=== PATIENT | female | born 1980 | race Caucasian/White ===

== ENCOUNTER 2017-09-18 23:50 | Emergency (ER) | payer OTHER ==
[2017-09-19] MEDS ORDERED: ATIVAN IV ONE (00:57)
[2017-09-19] MEDS ORDERED: ATIVAN IM ONE (01:01)
--- NOTE | 2017-09-19 01:01 | Emergency Department Report ---
ED General Adult HPI - General Chief complaint: High BP Stated complaint: HIGH BLOOD PRESSURE Time Seen by Provider: 09/19/17 00:47 Source: patient, family Mode of arrival: Ambulatory Limitations: Language Barrier - History of Present Illness Initial comments: Patient is 37 years old female with history of hypertension presented to the ER with high blood pressure and an anxiety attack. Patient daughter stated that they had a big family dispute this evening. Patient denied any headache shortness of breath, chest pain, weakness numbness or tingling sensation. No bowel or bladder incontinence. Patient stated that she is depressed but she denied any suicidal or homicidal ideation. She stated that she is following with her primary doctor for depression. - Related Data Previous Rx's Medication Instructions Recorded Last Taken Type LORazepam [Ativan] 1 mg PO QHS #7 tab 09/19/17 Unknown Rx Allergies Allergy/AdvReac Type Severity Reaction Status Date / Time omeprazole AdvReac Unknown Verified 09/19/17 00:23 ED Review of Systems ROS: Stated complaint: HIGH BLOOD PRESSURE Other details as noted in HPI Comment: All other systems reviewed and negative Constitutional: denies: chills, fever Respiratory: denies: cough, shortness of breath Cardiovascular: denies: chest pain, palpitations, dyspnea on exertion Gastrointestinal: denies: abdominal pain, nausea, vomiting, diarrhea, constipation, hematemesis Genitourinary: denies: urgency Musculoskeletal: denies: back pain Neurological: denies: headache, weakness, numbness, paresthesias, confusion, abnormal gait, vertigo ED Past Medical Hx - Past Medical History Previous Medical History?: Yes Hx Hypertension: Yes Hx Diabetes: No (with only) Hx GERD: Yes Hx Liver Disease: Yes (Hep B) Hx Psychiatric Treatment: Yes (depression, anxiety) - Surgical History Past Surgical History?: Yes Additional Surgical History: Breast augmentation, Tubal ligation - Social History Smoking Status: Never Smoker Substance Use Type: None - Medications Home Medications: Home Medications Medication Instructions Recorded Confirmed Last Taken Type LORazepam [Ativan] 1 mg PO QHS #7 tab 09/19/17 Unknown Rx ED Physical Exam - General Limitations: Language Barrier General appearance: alert, in no apparent distress, anxious - Head Head exam: Present: atraumatic, normocephalic, normal inspection - Eye Eye exam: Present: normal appearance, PERRL - ENT ENT exam: Present: normal exam, normal orophraynx, mucous membranes moist - Neck Neck exam: Present: normal inspection, full ROM. Absent: tenderness, meningismus - Respiratory Respiratory exam: Present: normal lung sounds bilaterally. Absent: respiratory distress, wheezes, rales, rhonchi, stridor, chest wall tenderness, accessory muscle use, decreased breath sounds, prolonged expiratory - Cardiovascular Cardiovascular Exam: Present: regular rate, normal rhythm, normal heart sounds - GI/Abdominal GI/Abdominal exam: Present: soft, normal bowel sounds. Absent: distended, tenderness, guarding, rebound, rigid, hyperactive bowel sounds, hypoactive bowel sounds, organomegaly, mass, bruit, pulsatile mass, hernia - Extremities Exam Extremities exam: Present: normal inspection, full ROM, normal capillary refill - Back Exam Back exam: Present: normal inspection, full ROM. Absent: tenderness, CVA tenderness (R), CVA tenderness (L) - Neurological Exam Neurological exam: Present: alert, oriented X3, CN II-XII intact, normal gait, reflexes normal. Absent: abnormal gait, motor sensory deficit - Psychiatric Psychiatric exam: Present: depressed, anxious. Absent: agitated, flat affect, manic, homicidal ideation, suicidal ideation - Skin Skin exam: Present: warm, intact, normal color ED Course Vital Signs 09/19/17 09/19/17 09/19/17 00:24 00:40 01:00 Temperature 99.5 F Pulse Rate 89 Respiratory 18 Rate Blood Pressure 180/103 161/99 178/104 Blood Pressure [Left] O2 Sat by Pulse 100 Oximetry 09/19/17 09/19/17 09/19/17 01:39 02:00 02:01 Temperature Pulse Rate 74 Respiratory 18 Rate Blood Pressure 152/95 162/102 Blood Pressure 152/95 [Left] O2 Sat by Pulse 100 Oximetry - Reevaluation(s) Reevaluation #1: 09/19/17 02:35 Patient stated that she is feeling much better. Advised patient to follow-up with her primary care physician for further management. 09/19/17 02:44 ED Medical Decision Making - Lab Data Result diagrams: 09/19/17 01:05 09/19/17 01:05 Critical care attestation.: If time is entered above; I have spent that time in minutes in the direct care of this critically ill patient, excluding procedure time. ED Disposition Clinical Impression: Shortness of breath, Panic attack as reaction to stress Disposition: DC-01 TO HOME OR SELFCARE Is pt being admited?: No Condition: Stable Instructions: Anxiety (ED) Prescriptions: LORazepam [Ativan] 1 mg PO QHS #7 tab Referrals: YARITZA PRICE MD [Primary Care Provider] - 3-5 Days
[2017-09-19 01:38] LABS: Basophils # (Auto) 0.1 K/mm3 (0.0-0.1); Basophils % (Auto) 0.6 % (0.0-1.8); Eosinophils # (Auto) 0.1 K/mm3 (0.0-0.4); Eosinophils % (Auto) 1.6 % (0.0-4.3); Hematocrit 32.4 % (30.3-42.9); Hemoglobin 10.2 gm/dl (10.1-14.3); Lymphocytes # (Auto) 1.3 K/mm3 (1.2-5.4); Lymphocytes % (Auto) 14.3 % (13.4-35.0); Mean Corpuscular HGB Conc 32 % (30-34); Mean Corpuscular Hemoglobin 21 pg (28-32); Mean Corpuscular Volume 68 fl (79-97); Monocytes # (Auto) 0.5 K/mm3 (0.0-0.8); Monocytes % (Auto) 5.6 % (0.0-7.3); Platelet Count 411 K/mm3 (140-440); Red Cell Distribution Width 17.5 % (13.2-15.2)
[2017-09-19 01:39] LABS: BUN/Creatinine Ratio 23; Blood Urea Nitrogen 14 mg/dL (7-17); Calcium 8.8 mg/dL (8.4-10.2); Hemolysis Index 1
[2017-09-19 02:21] VITALS: BP 162/102
== END 2017-09-19 02:50 | disposition home or self-care (01) ==
LOC: ED 23:50
DX: F41.0 Panic disorder [episodic paroxysmal anxiety] (principal); I10 Essential (primary) hypertension; K21.9 Gastro-esophageal reflux disease without esophagitis; F32.9 Major depressive disorder, single episode, unspecified; Z88.8 Allergy status to other drugs, medicaments and biological substances
CPT/HCPCS: 36415; 80048; 85025; 96372; 99283; J2060